=== PATIENT | male | born 1965 | race African-American/Black ===

== ENCOUNTER 2024-04-04 10:43 | Emergency (ER) | payer BC, MEDICAID ==
[~2024-04-04] VITALS: Ht 175.3 cm; Wt 295.0 kg
[2024-04-04 11:32] VITALS: BP 168/88; PULSE 82; RESP 18; TEMP 97.5; O2SAT 98
[2024-04-04] MEDS: HYDROcodone/acetaminophen 5mg/325mg tablet PO ONE (14:36)
[2024-04-04] MEDS ORDERED: OXYC-145 PO (14:46)
== END 2024-04-04 15:13 | disposition home or self-care (01) ==
LOC: ER 10:44
DX: S92.812A Other fracture of left foot, initial encounter for closed fracture (principal); Z88.5 Allergy status to narcotic agent; W18.39XA Other fall on same level, initial encounter; Y93.01 Activity, walking, marching and hiking; Y92.096 Garden or yard of other non-institutional residence as the place of occurrence of the external cause; Y99.8 Other external cause status
CPT/HCPCS: 73610; 73630; 99284; L4360

== ENCOUNTER 2024-07-03 11:55 | Emergency (ER) | payer BC, MEDICAID ==
[~2024-07-03] VITALS: Ht 182.9 cm; Wt 142.7 kg
[~2024-07-03 11:55] MED LIST: OXYC-145 PO
[2024-07-03 12:01] VITALS: TEMP 98.3
[2024-07-03 13:22] LABS: BILIRUBIN,URINE NEGATIVE (Neg); CLARITY,URINE CLEAR (Clear); COLOR,URINE YELLOW (Yellow); GLUCOSE, URINE NEGATIVE (Neg); KETONES,URINE NEGATIVE (Neg); LEUKOCYTE ESTERASE ,URINE NEGATIVE (Neg); NITRITES, URINE NEGATIVE (Neg); OCCULT BLOOD,URINE SMALL (Neg); PROTEIN,URINE NEGATIVE (Neg)
[2024-07-03 13:23] LABS: UA COLLECTION TYPE VOIDED
[2024-07-03 13:29] LABS: BASOPHILS # (AUTO) 0.1 X10'3 (0-0.2); BASOPHILS % (AUTO) 0.8 % (0-1); EOSINOPHILS # (AUTO) 0.1 X10'3 (0-0.9); HEMATOCRIT 41.9 % (42.0-52.0); HEMOGLOBIN 13.5 g/dl (14.0-17.9); LYMPHOCYTES # (AUTO) 1.9 X10'3 (1.1-4.8); LYMPHOCYTES % (AUTO) 30.3 % (21-51); MEAN CORPUSCULAR HEMOGLOBIN 27.8 PG (27.0-31.0); MEAN CORPUSCULAR HGB CONC 32.1 g/dL (33.0-36.5); MEAN CORPUSCULAR VOLUME 86.4 FL (78-98); MEAN PLATELET VOLUME 6.5 FL (7.4-10.4); MONOCYTES # (AUTO) 0.6 X10'3 (0-0.9); MONOCYTES % (AUTO) 8.9 % (2-12); NEUTROPHILS # (AUTO) 3.7 X10'3 (1.8-7.7); PLATELET COUNT 235 X10'3 (140-440); RED BLOOD COUNT 4.86 X10'6 (4.70-6.10); RED CELL DISTRIBUTION WIDTH 14.2 % (11.5-14.5); WHITE BLOOD COUNT 6.4 X10'3 (4.5-11.0)
[2024-07-03 13:29] LABS: BACTERIA,URINE NONE SEEN /HPF (Neg); SQUAMOUS EPITHELIAL CELL,UR NONE SEEN /LPF (FEW); WBC,URINE NONE SEEN /HPF (0-4)
[2024-07-03 13:45] LABS: APTT 27 SECONDS (22-32); PROTHROMBIN TIME 10.1 SECONDS (9.0-12.0)
[2024-07-03 13:46] LABS: ALANINE AMINOTRANSFERASE 32 U/L (12-78); ALBUMIN 3.6 G/DL (3.4-5.0); ALBUMIN/GLOBULIN RATIO 0.9 (1.1-1.5); ALKALINE PHOSPHATASE 72 IU/L (46-116); ANION GAP 7 (8-16); ASPARTATE AMINO TRANSFERASE 17 U/L (10-37); BILIRUBIN,TOTAL 0.6 MG/DL (0.1-1.0); BLOOD UREA NITROGEN 15 MG/DL (7-18); CALCIUM 8.9 MG/DL (8.5-10.1); CHLORIDE 100 MMOL/L (99-107); CREATININE 1.15 MG/DL (0.60-1.10); GLUCOSE 184 MG/DL (70-104); LIPASE 35 U/L (16-77); SODIUM 138 MMOL/L (135-145); TOTAL CARBON DIOXIDE 31.1 MMOL/L (24-32); TOTAL PROTEIN 7.6 G/DL (6.4-8.2); eCRCL 77 ML/MIN; eGFR 79 ML/MIN
[2024-07-03 15:35] VITALS: BP 148/78; PULSE 76; RESP 14; O2SAT 93
== END 2024-07-03 15:34 | disposition home or self-care (01) ==
LOC: ER 11:56
DX: R10.84 Generalized abdominal pain (principal); R60.9 Edema, unspecified; Z88.5 Allergy status to narcotic agent
CPT/HCPCS: 36415; 74176; 80053; 81001; 83690; 85025; 85610; 85730; 99284